=== PATIENT | female | born 1975 | race Two or more races ===

== ENCOUNTER 2020-08-22 14:22 | Inpatient (IN) | payer OTHER ==
[~2020-08-22] VITALS: Ht 165.1 cm; Wt 97.6 kg
[2020-08-22] MEDS ORDERED: NORE1PAT7 TD (14:53)
[2020-08-22 15:28] LABS: BASOPHILS % (AUTO) 0.3 % (0.0-2.0); EOSINOPHILS % (AUTO) 0.8 % (1.0-6.0); HEMATOCRIT 41.5 % (36-46); HEMOGLOBIN 14.1 g/dL (12.0-16.0); LYMPHOCYTES # (AUTO) 1.6 K/uL (1.0-4.8); LYMPHOCYTES % (AUTO) 16.5 % (22.0-44.0); MEAN CORPUSCULAR HEMOGLOBIN 30.1 pg (26.0-34.0); MEAN CORPUSCULAR VOLUME 89 fL (80-100); MONOCYTES # (AUTO) 0.7 K/uL (0.1-1.0); MONOCYTES % (AUTO) 6.8 % (2.0-9.0); NEUTROPHILS # (AUTO) 7.3 K/uL (1.8-7.7); NEUTROPHILS % (AUTO) 75.6 % (40.0-70.0); PLATELET COUNT (AUTO) 264 K/uL (150-450); RED BLOOD CELL COUNT(AUTO) 4.69 MIL/uL (4.00-5.20); RED CELL DISTRIBUTION WIDTH 13.2 % (11.5-14.5)
[2020-08-22 15:53] LABS: ANION GAP 7 mmol/L (8-16); CALCIUM, TOTAL 8.1 mg/dL (8.8-10.5); CARBON DIOXIDE 26 mmol/L (22-29); CHLORIDE 105 mmol/L (98-107); CREATININE 0.84 mg/dL (0.60-1.30); GLOMERULAR FILTR. RATE CALC > 60 mL/min (>60); GLUCOSE,RANDOM 122 mg/dL (70-110); POTASSIUM 3.4 mmol/L (3.5-5.1); SODIUM SERUM 138 mmol/L (136-145); UREA NITROGEN, BLOOD 7 mg/dL (7-18)
[2020-08-22 16:06] LABS: ALANINE AMINOTRANSFERASE 28 U/L (12-78); ALBUMIN 3.3 g/dL (3.4-5.0); ALKALINE PHOSPHATASE 51 U/L (46-116); ASPARTATE AMINOTRANSFERASE 19 U/L (15-37); BILIRUBIN,TOTAL 0.6 mg/dL (0.1-1.0); HCG,QUANTITATIVE 1 mIU/mL (0-6); TOTAL PROTEIN, SERUM 6.9 g/dL (6.4-8.2)
[2020-08-22 17:18] LABS: AMPHET/METH SCREEN,URINE NEGATIVE (NEGATIVE); BARBITURATE SCREEN, URINE NEGATIVE (NEGATIVE); BENZODIAZEPINES SCREEN,URINE NEGATIVE (NEGATIVE); CANNABINOID SCREEN,URINE NEGATIVE (NEGATIVE); COCAINE SCREEN,URINE NEGATIVE (NEGATIVE); METHADONE SCREEN, URINE NEGATIVE (NEGATIVE); OPIATE SCREEN,URINE NEGATIVE (NEGATIVE)
[2020-08-22 17:23] LABS: PHENCYCLIDINE SCREEN,URINE NEGATIVE (NEGATIVE)
[2020-08-22 17:57] LABS: COVID AG,FIA SOURCE NASOPHARYNGEAL
[2020-08-22] MEDS ORDERED: POTASSIUM CHLORIDE 10% 40 MEQ/30 ML LIQUID UDCUP PO ONE (20:00)
[2020-08-23] MEDS ORDERED: HALOPERIDOL 5 MG TABLET PO PRN (01:00)
[2020-08-23] MEDS ORDERED: LORazepam 2 MG TABLET PO PRN (01:00)
[2020-08-23] MEDS ORDERED: INFLUENZA VIRUS VACCINE QVS 2020-21 (6MO+)/PF 60 MCG/0.5 ML SYRINGE IM ONE (01:15)
[2020-08-23] MEDS ORDERED: ALBUTEROL SULFATE HFA 90 MCG/PUFF 8 GM INHALER IH PRN (07:15)
[2020-08-23] MEDS ORDERED: LOPERAMIDE HCL 2 MG CAPSULE PO PRN (07:15)
[2020-08-23] MEDS ORDERED: POTASSIUM CHLORIDE 20 MEQ ER TABLET PO ONE (07:15)
[2020-08-23] MEDS ORDERED: PETROLATUM,WHITE 28 GM JELLY TP PRN (07:15)
[2020-08-23] MEDS ORDERED: ONDANSETRON HCL 4 MG TABLET PO PRN (07:15)
[2020-08-23] MEDS ORDERED: BENZOCAINE/MENTHOL LOZENGE PO PRN (07:15)
[2020-08-23] MEDS ORDERED: BACITRACIN 28 GM OINTMENT TP PRN (07:15)
[2020-08-23] MEDS ORDERED: DOCUSATE SODIUM 100 MG CAPSULE PO PRN (07:15)
[2020-08-23] MEDS ORDERED: CloNIDine HCL 0.1 MG TABLET PO PRN (07:15)
[2020-08-23] MEDS ORDERED: ACETAMINOPHEN 325 MG TABLET PO PRN (07:15)
[2020-08-23] MEDS ORDERED: IBUPROFEN 600 MG TABLET PO PRN (07:15)
[2020-08-23] MEDS ORDERED: OMEPRAZOLE 20 MG CAPSULE PO PRN (07:15)
[2020-08-23] MEDS ORDERED: MAGNESIUM HYDROXIDE SUSPENSION 30 ML UDCUP PO PRN (07:15)
[2020-08-23] MEDS ORDERED: MAG HYDROX/AL HYDROX/SIMETH ES 30 ML SUSPENSION UDCUP PO PRN (07:15)
[2020-08-23 08:00] VITALS: BP 141/86
[2020-08-23] MEDS: LISINOPRIL 20 MG TABLET PO SCH (09:00)
[2020-08-23] MEDS ORDERED: POTASSIUM CHLORIDE 10% 40 MEQ/30 ML LIQUID UDCUP PO ONE (10:15)
[2020-08-23] MEDS ORDERED: LORazepam 2 MG/ML VIAL ONE (11:03)
[2020-08-23] MEDS ORDERED: DiphenhydrAMINE HCL 50 MG/ML VIAL ONE (11:03)
[2020-08-23] MEDS ORDERED: HALOPERIDOL LACTATE 5 MG/ML VIAL ONE (11:03)
[2020-08-23] MEDS ORDERED: HALOPERIDOL LACTATE 5 MG/ML VIAL IM ONE (11:15)
[2020-08-23] MEDS ORDERED: DiphenhydrAMINE HCL 50 MG/ML VIAL IM ONE (11:15)
[2020-08-23] MEDS ORDERED: LORazepam 2 MG/ML VIAL IM ONE (11:15)
[2020-08-24 07:00] LABS: CHOL/HDL RATIO 2.4 (3.9-5.7)
[2020-08-24] MEDS: LISINOPRIL 20 MG TABLET PO SCH (08:17)
[2020-08-24] MEDS ORDERED: POTASSIUM CHLORIDE 20 MEQ ER TABLET PO ONE (09:00)
[2020-08-24 09:55] VITALS: BP 143/108
[2020-08-24] MEDS ORDERED: LITH450CRT PO (13:15)
[2020-08-24] MEDS: LITHIUM CARBONATE 450 MG ER TABLET PO SCH (16:43)
[2020-08-24 17:28] VITALS: BP 104/64
[2020-08-24] MEDS: OLANZapine 5 MG TABLET PO SCH (20:14)
[2020-08-25] MEDS: LISINOPRIL 20 MG TABLET PO SCH (08:31)
[2020-08-25] MEDS: LITHIUM CARBONATE 450 MG ER TABLET PO SCH ×2 (08:31→16:27)
[2020-08-25 09:27] VITALS: BP 144/83
[2020-08-25 16:00] VITALS: BP 143/104
[2020-08-25] MEDS: OLANZapine 5 MG TABLET PO SCH (20:28)
[2020-08-25] MEDS: ZOLPIDEM TARTRATE 10 MG TABLET PO PRN (23:16)
[2020-08-26 08:00] VITALS: BP 134/70
[2020-08-26] MEDS: LITHIUM CARBONATE 450 MG ER TABLET PO SCH ×2 (08:45→16:41)
[2020-08-26] MEDS: LISINOPRIL 20 MG TABLET PO SCH (08:48)
[2020-08-26 17:00] VITALS: BP 151/93
[2020-08-26] MEDS: OLANZapine 5 MG TABLET PO SCH (21:12)
[2020-08-27] MEDS: LISINOPRIL 20 MG TABLET PO SCH (08:18)
[2020-08-27] MEDS: LITHIUM CARBONATE 450 MG ER TABLET PO SCH ×2 (08:18→16:18)
[2020-08-27 10:39] VITALS: BP 127/84
[2020-08-27 17:00] VITALS: BP 131/90
[2020-08-27] MEDS: OLANZapine 5 MG TABLET PO SCH (20:38)
[2020-08-27] MEDS: ZOLPIDEM TARTRATE 10 MG TABLET PO PRN (21:40)
[2020-08-28] MEDS: LISINOPRIL 20 MG TABLET PO SCH (08:27)
[2020-08-28] MEDS: LITHIUM CARBONATE 450 MG ER TABLET PO SCH (08:27)
[2020-08-28 08:57] VITALS: BP 143/80
[2020-08-28] MEDS ORDERED: OMEGA-3/DHA/EPA/FISH OIL 1,000 MG CAPSULE PO SCH (09:00)
[2020-08-28] MEDS ORDERED: OLAN5TAB2 PO (11:43)
[2020-08-28] MEDS ORDERED: LISI-662 PO (11:45)
[2020-08-28] MEDS ORDERED: OMEG-135 PO (11:46)
== END 2020-08-28 14:45 | disposition home or self-care (01) | DRG 885 ==
LOC: EMS 14:24 → 3EC 23:37
PROVIDERS: ADMIT Psychiatry & Neurology Psychiatry; ATTEND Psychiatry & Neurology Psychiatry
DX: F31.9 Bipolar disorder, unspecified (principal); R45.851 Suicidal ideations; F41.9 Anxiety disorder, unspecified; Z20.828 Contact with and (suspected) exposure to other viral communicable diseases; K59.00 Constipation, unspecified; G47.00 Insomnia, unspecified; F19.10 Other psychoactive substance abuse, uncomplicated; F17.200 Nicotine dependence, unspecified, uncomplicated; E87.6 Hypokalemia
CPT/HCPCS: 84132; 87426; G0480; J1200; J1630; J2060